=== PATIENT | male | born 1980 | race Caucasian/White ===

== ENCOUNTER 2017-08-07 21:48 | Emergency (ER) | payer OTHER ==
[~2017-08-07] VITALS: Ht 175.3 cm; Wt 83.9 kg
[~2017-08-07 21:48] MED LIST: AZITHROMYCIN 2250 MG PO; CEPHALEXIN 500500 M3 PO; ERYTHROMYCIN E3.5 G1 OP; IBUPROFEN 800800 M1 PO; NOHOMEMEDICATIONS; OSELB75 PO; PREDNISONE50 MG PO; PROAIR HFA8.5 GM INH
[2017-08-07 22:17] LABS: ABSOLUTE BASOPHILS 0.1 thou/uL (0.0-0.2); ABSOLUTE EOSINOPHILS 0.1 thou/uL (0.0-0.7); ABSOLUTE LYMPHOCYTES 1.7 thou/uL (0.8-5.3); ABSOLUTE MONOCYTES 0.6 thou/uL (0.0-1.2); ABSOLUTE NEUTROPHILS 7.2 thou/uL (1.6-8.1); BASOPHILS 1.2 %; EOSINOPHILS 1.5 %; HEMATOCRIT 47.7 % (42.0-52.0); HEMOGLOBIN 16.5 gm/dL (14.0-18.0); LYMPHOCYTES 17.1 %; MCH 31.4 pg (26.0-34.0); MCHC 34.6 g/dL (28.0-37.0); MCV 90.9 fL (80.0-100.0); MONOCYTES 5.7 %; MPV 7.2 fl. (7.2-11.1); NUCLEATED RBCS 0 /100WBC; PLATELET COUNT* 402 thou/uL (150-400); POLYS 74.5 %; RBC 5.25 mil/uL (4.50-6.00); RDW-CV 13.8 % (10.5-14.5); WBC 9.7 thou/uL (4.0-11.0)
[2017-08-07 22:37] LABS: ALBUMIN 3.7 g/dL (3.4-5.0); ALKALINE PHOSPHATASE 81 U/L (46-116); ANION GAP 6 mmol/L (7-16); BUN 16 mg/dL (7-18); CALCIUM 8.9 mg/dL (8.5-10.1); CHLORIDE 102 mmol/L (98-107); CO2 33 mmol/L (21-32); CREATININE 1.1 mg/dL (0.6-1.3); GLUCOSE 154 mg/dL (70-99); LIPASE 118 U/L (73-393); POTASSIUM 4.2 mmol/L (3.5-5.1); SGOT 17 U/L (15-37); SGPT 38 U/L (30-65); SODIUM 141 mmol/L (136-145); TOTAL BILIRUBIN 0.9 mg/dL (<0.1-1.0); TOTAL PROTEIN 7.1 g/dL (6.4-8.2); TROPONIN-I LEVEL <0.06 ng/mL (<0.06)
[2017-08-07] MEDS ORDERED: CARAFATE 1 GM TA1 GM PO (23:47)
[2017-08-07] MEDS ORDERED: PRILOSEC 20 MG20 MG PO (23:47)
[2017-08-07 23:55] VITALS: BP 144/89
--- NOTE | 2017-08-08 15:37 | EKG ---
[place] [address] ELECTROCARDIOGRAM REPORT Name: RUFINA BRADLEYSHIRA Horner Room: [facility]#: [id number] Admission: 08/07/17 Attend Phys: Discharge: 08/07/17 Date of : 78 Report #: [id number] THIS REPORT FOR: //name// [facility] ED Test Date: 2017-08-07 Test Time: 21:51:34 Pat Name: DELORIS BRADLEY Department: Room: Gender: [place] Operator: YUMI Dale : 1980 Requested By: Maya Forbes Order Number: [id number] MD: Elmer Dye Measurements Intervals [place] Rate: 67 P: 45 ME: 131 QRS: 70 QRSD: 96 T: 48 QT: 378 QTc: 399 Interpretive Statements Sinus rhythm ST elev, probable normal early repol pattern No previous ECG available for comparison Electronically Signed On 08-08-2017 15:37:37 EVP MANAGING DIRECTOR by Elmer Dye [email or web address] <ELECTRONICALLY SIGNED> By: Elmer Dye MD, [facility] 08/08/17 1537 [id number] [id number] Elmer Dye MD, FACC /EPI
== END 2017-08-07 23:56 | disposition home or self-care (01) ==
LOC: M.ERS 21:48
PROVIDERS: Nurse Practitioner Family
DX: K20.9 Esophagitis, unspecified (principal); F10.20 Alcohol dependence, uncomplicated; F17.210 Nicotine dependence, cigarettes, uncomplicated

== ENCOUNTER 2019-01-07 19:33 | Emergency (ER) | payer OTHER ==
[~2019-01-07] VITALS: Ht 177.8 cm; Wt 83.9 kg
[~2019-01-07 19:33] MED LIST changes: +CARAFATE 1 GM TA1 GM PO; +PRILOSEC 20 MG20 MG PO
[2019-01-07] MEDS ORDERED: AMOXIL 875 MG875 M1 PO (19:48)
[2019-01-07] MEDS ORDERED: IBUPROFEN 600600 M1 PO (19:48)
[2019-01-07] MEDS ORDERED: LIDOCAINE VISC100 ML PO (19:50)
[2019-01-07 20:07] VITALS: BP 158/99
== END 2019-01-07 20:09 | disposition home or self-care (01) ==
LOC: M.ERS 19:33
DX: S02.5XXA Fracture of tooth (traumatic), initial encounter for closed fracture (principal); K04.7 Periapical abscess without sinus; K02.9 Dental caries, unspecified; F17.210 Nicotine dependence, cigarettes, uncomplicated; X58.XXXA Exposure to other specified factors, initial encounter; Y92.89 Other specified places as the place of occurrence of the external cause; Y93.89 Activity, other specified; Y99.8 Other external cause status

== ENCOUNTER 2020-01-06 09:50 | Emergency (ER) | payer OTHER ==
[~2020-01-06] VITALS: Ht 175.3 cm; Wt 81.7 kg
[~2020-01-06 09:50] MED LIST changes: +AMOXIL 875 MG875 M1 PO; +IBUPROFEN 600600 M1 PO; +LIDOCAINE VISC100 ML PO
[2020-01-06] MEDS ORDERED: AZITHROMYCIN 2250 MG PO (10:23)
[2020-01-06] MEDS ORDERED: SUPRAX400 M1 PO (10:23)
[2020-01-06 10:32] VITALS: BP 132/86
[2020-01-06 10:38] LABS: URINE BILIRUBIN NEGATIVE (Negative); URINE BLOOD 1+ (Negative); URINE CLARITY CLEAR; URINE COLOR YELLOW; URINE GLUCOSE-RANDOM NEGATIVE (Negative); URINE KETONES NEGATIVE (Negative); URINE NITRITE-REFLEX NEGATIVE (Negative); URINE PROTEIN NEGATIVE (Negative); URINE UROBILINOGEN 0.2 E.U./dl (0.2-1.0)
[2020-01-06 10:41] LABS: URINE LEUKOCYTES-REFLEX 2+ (Negative)
[2020-01-06 10:53] LABS: BACTERIA-REFLEX 1-9 Few /HPF (None Seen); CASTS None Seen /LPF (None Seen); CRYSTALS None Seen /LPF (None Seen); SQUAMOUS 0-3 Few /LPF (0-3); URINE RBC 3-10 Few /HPF (0-2); URINE WBC-REFLEX 0-5 Rare /HPF (0-5)
== END 2020-01-06 10:32 | disposition home or self-care (01) ==
LOC: M.ERS 09:50
PROVIDERS: Family Medicine
DX: Z20.2 Contact with and (suspected) exposure to infections with a predominantly sexual mode of transmission (principal); F17.210 Nicotine dependence, cigarettes, uncomplicated

== ENCOUNTER 2020-06-17 15:49 | Emergency (ER) | payer OTHER ==
[~2020-06-17] VITALS: Ht 177.8 cm; Wt 81.7 kg
[~2020-06-17 15:49] MED LIST changes: +SUPRAX400 M1 PO
[2020-06-17] MEDS ORDERED: MECLIZINE HCL25 M1 PO (17:08)
[2020-06-17] MEDS ORDERED: APAP W/CODEINE1 TA2 PO (17:08)
[2020-06-17 17:23] VITALS: BP 143/84
== END 2020-06-17 17:23 | disposition home or self-care (01) ==
LOC: M.ERS 15:49
DX: U07.1 COVID-19 (principal); R51.9 Headache, unspecified; F17.210 Nicotine dependence, cigarettes, uncomplicated

== ENCOUNTER 2021-03-18 15:29 | Emergency (ER) | payer OTHER ==
[~2021-03-18] VITALS: Ht 175.3 cm; Wt 83.9 kg
[~2021-03-18 15:29] MED LIST changes: +APAP W/CODEINE1 TA2 PO; +MECLIZINE HCL25 M1 PO
[2021-03-18] MEDS ORDERED: MEDROLDOSEPACK PO (15:47)
[2021-03-18] MEDS ORDERED: FLEXERIL PO (15:47)
[2021-03-18 15:52] VITALS: BP 129/87
== END 2021-03-18 15:53 | disposition home or self-care (01) ==
LOC: M.ERS 15:29
DX: S39.012A Strain of muscle, fascia and tendon of lower back, initial encounter (principal); F17.210 Nicotine dependence, cigarettes, uncomplicated; X50.0XXA Overexertion from strenuous movement or load, initial encounter; Y93.89 Activity, other specified; Y92.89 Other specified places as the place of occurrence of the external cause; Y99.8 Other external cause status